=== PATIENT | male | born 1940 | race Caucasian/White ===

== ENCOUNTER 2017-01-06 10:40 | Inpatient (IN) | payer OTHER ==
[2017-01-09] MEDS ORDERED: BISACODYL 10 MG SUPP PR PRN (10:52)
[2017-01-09] MEDS ORDERED: MAG HYDROX/AL HYDROX/SIMETH 30 ML UDCUP PO PRN (10:52)
[2017-01-09] MEDS ORDERED: MAGNESIUM HYDROXIDE 30 ML UDCUP PO PRN (10:52)
[2017-01-09] MEDS ORDERED: POLYETHYLENE GLYCOL 3350 17 GM PKT PO PRN (10:52)
[2017-01-09] MEDS ORDERED: NON-FORMULARY NEW DRUG (Ezetimibe/Simvastatin [Vytorin 10-20 Mg Tablet] 1 EACH) PO SCH (11:00)
--- NOTE | 2017-01-09 11:55 | PDGENHP ---
History and Physical - Chief Complaint stroke - History of Present Illness Date of admission: 01/09/2017 Referring physician: Atilio Hernandez MD Time of evaluation: 1000 Referring facility: [facility] diagnosis: stroke Impairment group: 01.3 Etiologic diagnosis: bilateral embolic cerebral infarct Date of onset: 12/30/2016 76 year old right handed man and [place] resident with h/o untreated alcoholism and no regular medical care who was brought in by EMS to [facility] after fall with right sided weakness found to have acute scattered bilateral strokes (left post. capsule, parietal, occipitotemporal lobes and right thalamus) felt to be embolic in nature but no source was found. Tele was NSR for duration of stay, carotid US (Noted "limited exam with mild bilateral IC atherosclerosis with <50% narrowing, though notes proximal cervical external carotid 50-69% stenosis"), Cardiac Echo with mod concentric LVH and LVEF 45-49% but no notable thrombus. Was initially placed on heprin gtt to bridge to therapuetic AC but recurrent falls in hospital, EtOHism, and discussions with family/neurology, it was felt that bleeding risk was to high and was placed on plavix instead. Of note also found to have CKD. He had mild-moderate EtOH withdrawl during his hospitalization treated with Ativan and Librium. Currently reports primarily "hard to control mood" but denies hallucinations or autonomic manifestations. Also tobacco abuse and notes reaction to patches at OSH (erythema noted over patch site) willing to try gum. Incidentally notes to have right maxillary mass on CT/MRI (4.7x 3.3cm). 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 Socially lives with a daughter in [place] but family in [place] highly fascilatory of his EtOHism and was even found bringing in Rum for him to drink in the hospital. He agreed to come live with daughter and son in law in [place]. Currently denies pain and only notes some right sided weakness and slurred speech. Highly tearful during interview. History Information - Allergies/Home Medication List Allergies/Adverse Reactions: No Known Allergies Allergy (Unverified 01/09/17 10:50) Home Medications: Clopidogrel Bisulfate [Plavix (*)] 75 mg PO DAILY 01/09/17 [Last Taken Unknown] Ezetimibe/Simvastatin [Vytorin 10-20 mg Tablet] 1 each PO DAILY 01/09/17 [Last Taken Unknown] amLODIPine BESYLATE [Norvasc 10 mg (*)] 10 mg PO DAILY 01/09/17 [Last Taken Unknown] chlordiazePOXIDE [Librium 5 mg (*)] 5 mg PO BID 01/09/17 [Last Taken Unknown] I have personally reviewed and updated: family history, medical history, social history, surgical history Past Medical History: EtOHism, no regular medical care - Surgical History Reports: no pertinent surgical hx - Family History Additional family history: unknown to pt - Social History Smoking Status: Heavy smoker Tobacco Use: Cigarettes Alcohol Use: Heavy Drug Use: None Additional social history: per hpi. Was independent in all functional task premorbidly. Current PT/OT/SLT notes no dysphagia but min-modA for most tasks. Review of Systems ROS: 10pt was reviewed & negative except for what was stated in HPI & below Constitutional: Denies: chills, fever EENMT: Reports: nose congestion Cardiac: Denies: chest pain Respiratory: Denies: cough Gastrointestinal: Denies: vomitting Genitourinary: Denies: burning, dysuria Muscolosketal: Denies: joint pain Skin: Reports: no symptoms Neurological: Reports: anxiety, depressed, emotional problems, weakness Hematologic/Lymphatic: Reports: no symptoms Immunologic/Allergy: Reports: no symptoms Physical Exam Temp Pulse Resp BP Pulse Ox 36.6 C 57 L 18 169/84 H 97 01/09/17 11:03 01/09/17 11:03 01/09/17 11:03 01/09/17 11:03 01/09/17 11:03 O2 (L/minute) 0 Constitutional: no apparent distress Eyes: No icteric sclera, No pale conjunctiva Ears, Nose, Mouth, Throat: moist mucous membranes, hearing normal, poor dentition Cardiovascular: regular rate and rhythym, No JVD, No carotid bruit Respiratory: no respiratory distress, clear to auscultation Gastrointestinal: normoactive bowel sounds, soft, non-tender abdomen Skin: warm, no rashes or abrasions Musculoskeletal: other (4/5 RUE and RLE weakness) Neurologic: AAOx3, sensation intact bilaterally (except demoinished left LE proprioception), CN II-XII Intact (except trace dysrthria), other (reflexes 1+ and mostly symmetric without primitive reflexes or spasticity, no dymetria, reasonably good standing balance), No pronator drift, No asterixes Psychiatric: anxious, depressed, flat affect, poor insight, poor judgement Lab Data & Imaging Review Relevant labs (01/03) WBC 6.9, Hgb 16.3, Plt 246 NA 138 K 4.0 Cl 105 C02 24 BUN 25 Cr 01.6 Glu 94 Assessment & Plan Assessment: 76 year old right handed man and [place] resident with h/o untreated alcoholism and no regular medical care who was brought in by EMS to [facility] after fall with right sided weakness found to have acute scattered bilateral embolic strokes and maxillary mass. All of which has resulted in significant functional decline. Currently is requiring assistance for most ADLs and mobility. He is appropriate for rehabilitation with therapy needs for physical, speech, and occupational therapy regarding mobility, dysarthria, cognitive decline and activities of daily living. Her goal is to be independent enough to return home and live with intermittent assistance. He will need close medical management and nursing care regarding his comorbidities including EtOHism, risk for falls, risk for aspiration, initiation of complicated novel medical regiment, and medical education. He will receive therapy including Physical, speech, and occupational therapy for 30-60 minutes each day 5-7 days a week, with a total of 15 hours per week or more, her expected duration of stay is 14 to 18 days. Is expected that once he is ready for discharge he will continue to benefit from a comprehensive home based rehab program once he returns home. Plan: * Bilateral embolic strokes with right hemiplegia, cognitive decline, dysarthria , and left LE decreased proprioception: Continue physical, speech and occupational therapy to optimize functional status and mobility. * Acute embolic left post. capsule, parietal, occipitotemporal lobes and right thalamus infarcts: cont. prophy with vytorin, plavix (pt high fall risk). No clear source of emboli will need Neuro f/u. 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 * Bowel/bladder: no retention and no documented BM at OSH will manage per RN * Mood/Behavior disturbances: very poor insight and compliance at OSH with multiple falls despite increased surveillance. Will keep on alarms and room near RN station. Consider more dedicated pharmacologic treatment of likely latent mood disorder outside of the setting of substance abuse. * Prophylaxis-> DVT, on plavix per prior risk/benefit discussion at OSH with pt. and family. GI, not indicated FULL CODE, this was discussed with pt and family on admit and info packet given to ensure documentation of wishes and help understanding of code process F/U: Will need to establish care with novel PCP, Neurology and ENT locally. Consider alcohol abuse and/or tobacco cessation program though currently patient refusing cessation. BAROS 16 days. Plan to d/c to daughter and soninlaws home. They currently live in a rented apartment but are actively looking for accessible home near [place]. 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
[2017-01-09] MEDS ORDERED: BETAMETHASONE AUGMENTED 0.05% 15GM CREAM TP PRN (12:23)
[2017-01-09] MEDS: FLUoxetine 20 MG CAP PO SCH (13:42)
[2017-01-09] MEDS: CLOPIDOGREL BISULFATE 75 MG TAB PO SCH (13:42)
[2017-01-09] MEDS: SENNOSIDES/DOCUSATE SODIUM TAB PO SCH ×2 (13:42→20:22)
[2017-01-09] MEDS: ACETAMINOPHEN 325 MG TAB PO PRN (13:43)
[2017-01-09] MEDS: NICOTINE POLACRILEX 2 MG GUM B PRN (13:43)
[2017-01-10] MEDS: CLOPIDOGREL BISULFATE 75 MG TAB PO SCH (08:26)
[2017-01-10] MEDS: ATORVASTATIN CALCIUM 10 MG TAB PO SCH (08:26)
[2017-01-10] MEDS: EZETIMIBE 10 MG TAB PO SCH (08:26)
[2017-01-10] MEDS: SENNOSIDES/DOCUSATE SODIUM TAB PO SCH ×2 (08:27→22:20)
[2017-01-10] MEDS: FLUoxetine 20 MG CAP PO SCH (08:27)
[2017-01-10 08:53] LABS: ANION GAP 11 mEq/L (8-16); CALCIUM 9.1 mg/dL (8.5-10.4); CARBON DIOXIDE 23 mEq/l (22-31); CHLORIDE 107 mEq/L (97-110); CREATININE 1.7 mg/dL (0.7-1.3); GLOMERULAR FILTRATION RATE 39; GLUCOSE 102 mg/dL (70-100); POTASSIUM 4.9 mEq/L (3.5-5.2); SODIUM 141 mEq/L (134-144)
--- NOTE | 2017-01-10 10:34 | PDOREHIP ---
Admission IRF-[facility] - Admission - 3 Day Assessment Period Admission Date/Day 1: 01/09/17 Day 2: 01/10/17 Day 3: 01/11/17 - Active Diagnoses Comorbidities and Co-existing Conditions at Admission: 00395. None of the Above - Skin Conditions Unhealed Pressure Ulcer (1 or more/Stage 1 or >)-Admission: 0. No
--- NOTE | 2017-01-10 13:30 | SOAPPROG ---
SOAP Progress Note Assessment/Plan: Assessment: 76 year old right handed man and [place] resident with h/o untreated alcoholism and no regular medical care with acute scattered bilateral embolic strokes and maxillary mass. All of which has resulted in significant functional decline. Currently is requiring assistance for most ADLs and mobility. /, no signs or symptoms of alcohol withdrawal, there was concern at the OSH that he was consuming alcohol in the hospital. No evidence of intoxication on interview or exam today. Cr elevated on labs (1.7), pt reports hx of chronic renal disease (prior Cr unknown at this point). Pt also refusing IV hydration, encouraged PO fluids for now and monitoring of Cr. Plan: * Bilateral embolic strokes with right hemiplegia, cognitive decline, dysarthria , and left LE decreased proprioception: Continue physical, speech and occupational therapy to optimize functional status and mobility. * Acute embolic left post. capsule, parietal, occipitotemporal lobes and right thalamus infarcts: cont. prophy with vytorin, plavix (pt high fall risk). No clear source of emboli will need Neuro f/u. Started Prozac 20mg daily for motor recovery * HTN: cont Norvasc 10mg daily * Renal disease hx? Continue to monitor Cr, pt refusing IVF. Encouraged PO fluids until urine clear. * EtOH abuse/withdrawl: No further CIWA, librium 5mg prn (was scheduled at OSH) to ween as able for neurorecovery and decrease fall risk. Monitor for clinical evidence of alcohol use in hospital which might impair rehab progress, and watch for signs of withdrawal given his possible unreported alcohol use in hospital. 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 * Bowel/bladder: no retention and no documented BM at OSH will manage per RN * Mood/Behavior disturbances: very poor insight and compliance at OSH with multiple falls despite increased surveillance. Will keep on alarms and room near RN station. Consider more dedicated pharmacologic treatment of likely latent mood disorder outside of the setting of substance abuse. * Prophylaxis-> DVT, on plavix per prior risk/benefit discussion at OSH with pt. and family. GI, not indicated FULL CODE, this was discussed with pt and family on admit (Dr. Andujar) and info packet given to ensure documentation of wishes and help understanding of code process F/U: Will need to establish care with novel PCP, Neurology and ENT locally. Consider alcohol abuse and/or tobacco cessation program though currently patient refusing cessation. ELOS 16 days. Plan to d/c to daughter and son-in-laws home. They currently live in a rented apartment but are actively looking for accessible home near [place]. 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 01/10/17 13:24 Subjective: CC: neurological stability, alcohol withdrawal monitoring No acute events overnight. Pt working well with therapies, denies problem with alcohol. Reports hx of renal impairment, not clear on the history or what his baseline Cr might be. refusing IVF despite discussion of risks and benefits. No new numbness, tingling or weakness. Sleeping well, no pain or other new concerns. Denies nausea, tremor, sweating, anxiety, agitation, tactile auditory or visual disturbances, headache, or disorientation. A&Ox3. Objective: Vital Signs Temp Pulse Resp BP Pulse Ox 36.3 C 54 L 16 167/76 H 96 01/10/17 05:45 01/10/17 10:35 01/10/17 05:45 01/10/17 10:35 01/10/17 05:45 Laboratory Results 01/10/17 06:00 01/09/17 01/10/17 01/11/17 05:59 05:59 05:59 Intake Total 1230 480 Output Total 200 Balance 1030 480 Physical Exam - Physical Exam General Appearance: alert, no apparent distress EENT: No scleral icterus (R), No scleral icterus (L) Respiratory: lungs clear, normal breath sounds, No respiratory distress Cardiac/Chest: normal peripheral pulses, regular rate, rhythm Abdomen: non-tender, soft Skin: normal color, No jaundice Lymphatic: no adenopathy Neuro/Psych: alert, other (impaired right hand coordination) ICD10 Worksheet Patient Problems: Problems Problem Status Onset Stroke Acute - ICD10 Problem Qualifiers (1) Stroke Qualifiers: CVA mechanism: embolism Precerebral and cerebral artery: unspecified cerebral artery Laterality of affected vessel: L Qualified Code(s): I63.40 - Cerebral infarction due to embolism of unspecified cerebral artery
[2017-01-11] MEDS: EZETIMIBE 10 MG TAB PO SCH (07:54)
[2017-01-11] MEDS: SENNOSIDES/DOCUSATE SODIUM TAB PO SCH ×2 (07:54→21:13)
[2017-01-11] MEDS: CLOPIDOGREL BISULFATE 75 MG TAB PO SCH (07:54)
[2017-01-11] MEDS: FLUoxetine 20 MG CAP PO SCH (07:54)
[2017-01-11] MEDS: ATORVASTATIN CALCIUM 10 MG TAB PO SCH (07:54)
[2017-01-11 08:39] LABS: ANION GAP 9 mEq/L (8-16); CALCIUM 9.7 mg/dL (8.5-10.4); CARBON DIOXIDE 25 mEq/l (22-31); CHLORIDE 107 mEq/L (97-110); CREATININE 1.6 mg/dL (0.7-1.3); GLOMERULAR FILTRATION RATE 42; GLUCOSE 83 mg/dL (70-100); POTASSIUM 5.1 mEq/L (3.5-5.2); SODIUM 141 mEq/L (134-144)
--- NOTE | 2017-01-11 16:39 | SOAPPROG ---
SOAP Progress Note Assessment/Plan: Assessment: 76 year old right handed man and [place] resident with h/o untreated alcoholism and no regular medical care who suffered CVA 12/30/16 with acute scattered bilateral embolic strokes and maxillary mass. All of which has resulted in significant functional decline. Brought to [place] by daughter. Currently is requiring assistance for most ADLs and mobility. Plan: * Bilateral embolic strokes with right hemiplegia, cognitive decline, dysarthria , and left LE decreased proprioception: Continue physical, speech and occupational therapy to optimize functional status and mobility. * Acute embolic left post. capsule, parietal, occipitotemporal lobes and right thalamus infarcts: cont. prophy with atorvastatin/ezetimibe, clopidogrel (pt high fall risk). No clear source of emboli will need Neuro f/u. Started fluoxetine 20mg daily for motor recovery. * HTN: cont amlodipine 10mg daily. * Chronic renal insufficiency stage III: Continue to monitor Cr, pt refusing IVF. Encouraged PO fluids until urine clear. * EtOH abuse/withdrawal: No further CIWA, not needing chlordiazepoxide (was scheduled at OSH) to wean as able for neurorecovery and decrease fall risk. Monitor for clinical evidence of alcohol use in hospital which might impair rehab progress, and watch for signs of withdrawal given his possible unreported alcohol use in hospital. 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 * Bowel/bladder: no retention and no documented BM at OSH will manage per RN * Mood/Behavior disturbances: very poor insight and compliance at OSH with multiple falls despite increased surveillance. Will keep on alarms and room near RN station. Consider more dedicated pharmacologic treatment of likely latent mood disorder outside of the setting of substance abuse. * Prophylaxis-> DVT, on plavix per prior risk/benefit discussion at OSH with pt. and family. GI, not indicated FULL CODE, this was discussed with pt and family on admit (Dr. Andujar) and info packet given to ensure documentation of wishes and help understanding of code process F/U: Will need to establish care with novel PCP, Neurology and ENT locally. Consider alcohol abuse and/or tobacco cessation program though currently patient refusing cessation. ELOS 16 days. Plan to d/c to daughter and son-in-laws home. They currently live in a rented apartment but are actively looking for accessible home near [place]. All residents of home are employed and would be unavailable for assist during daytime hours. 01/11/17 16:59 Subjective: C/O pain R eye from the mass in his sinus. No diplopia, not interfering with sleep. No cough/dyspnea, f/c, n/v/d/c. Objective: Vital Signs Temp Pulse Resp BP Pulse Ox 36.3 C 69 18 131/76 H 95 01/11/17 06:26 01/11/17 06:26 01/11/17 06:26 01/11/17 07:53 01/11/17 06:26 Laboratory Results 01/11/17 06:35 01/10/17 01/11/17 01/12/17 05:59 05:59 05:59 Intake Total 1230 1580 710 Output Total 200 1000 200 Balance 1030 580 510 Physical Exam - Physical Exam General Appearance: WD/WN, alert, no apparent distress Respiratory: normal breath sounds, No crackles, No rhonchi, No wheezing Cardiac/Chest: regular rate, rhythm, No diastolic murmur, No systolic murmur Skin: normal color, warm/dry Neuro/Psych: alert, normal mood/affect, oriented x 3, motor weakness (R hand ataxic) ICD10 Worksheet Patient Problems: Problems Problem Status Onset Stroke Acute
[2017-01-11] MEDS: ACETAMINOPHEN 325 MG TAB PO PRN (22:41)
[2017-01-12] MEDS: ATORVASTATIN CALCIUM 10 MG TAB PO SCH (07:51)
[2017-01-12] MEDS: CLOPIDOGREL BISULFATE 75 MG TAB PO SCH (07:51)
[2017-01-12] MEDS: FLUoxetine 20 MG CAP PO SCH (07:52)
[2017-01-12] MEDS: SENNOSIDES/DOCUSATE SODIUM TAB PO SCH ×2 (07:52→22:02)
[2017-01-12] MEDS: EZETIMIBE 10 MG TAB PO SCH (07:52)
--- NOTE | 2017-01-12 09:04 | SOAPPROG ---
SOAP Progress Note Assessment/Plan: Assessment: 76 year old right handed man and [place] resident with h/o untreated alcoholism and no regular medical care who suffered CVA 12/30/16 with acute scattered bilateral embolic strokes. Incidental finding of maxillary mass. All of which has resulted in significant functional decline. Brought to [place] by daughter. Currently is requiring assistance for most ADLs and mobility. Plan: * Bilateral embolic strokes with right hemiplegia, cognitive decline, dysarthria , and left LE decreased proprioception: Initial FIM 77. Impulsive with reduced safety awareness and needing supervision at all times. Walked > 150' with occ need for min A due to dragging R foot, pati when turning. Supervision & set-up for ADLs, CGA for balance, poor balance when fatigued. Continue physical, speech and occupational therapy to optimize functional status and mobility. * Cognitive impairment. SLUMS . 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 * Acute embolic left post. capsule, parietal, occipitotemporal lobes and right thalamus infarcts: cont. prophy with atorvastatin/ezetimibe, clopidogrel (pt high fall risk). No clear source of emboli will need Neuro f/u. Started fluoxetine 20mg daily for motor recovery. * HTN: cont amlodipine 10mg daily. Add lisinopril 5 mg QD as BP often elevated. * Chronic renal insufficiency stage III: Continue to monitor Cr, pt refusing IVF. Encouraged PO fluids until urine clear. Adding lisinopril as he has elevated BP and proteinuria. * EtOH abuse/withdrawal: No further CIWA, not needing chlordiazepoxide (was scheduled at OSH) to wean as able for neurorecovery and decrease fall risk. Monitor for clinical evidence of alcohol use in hospital which might impair rehab progress, and watch for signs of withdrawal given his possible unreported alcohol use in hospital. 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 * Bowel/bladder: no retention and no documented BM at OSH will manage per RN * Mood/Behavior disturbances: very poor insight and compliance at OSH with multiple falls despite increased surveillance. Will keep on alarms and room near RN station. Consider more dedicated pharmacologic treatment of likely latent mood disorder outside of the setting of substance abuse. * Prophylaxis-> DVT, on plavix per prior risk/benefit discussion at OSH with pt. and family. GI, not indicated FULL CODE, this was discussed with pt and family on admit (Dr. Andujar) and info packet given to ensure documentation of wishes and help understanding of code process F/U: Will need to establish care with novel PCP, Neurology and ENT locally. Consider alcohol abuse and/or tobacco cessation program though currently patient refusing cessation. Attended staffing, 15 min. D/W case mgmt, nursing, PT, OT, HYDRAULIC TECHNICIAN. Reassess one week re progress towards lower [facility] of care. If no progress, conssider SNF discharge. If progressing, anticipated discharge date 01/17 - 01/21/15. Plans to d/c to daughter and son-in-laws home. They currently live in a rented apartment but are actively looking for accessible home near [place]. All residents of home are employed and would be unavailable for assist during daytime hours. 01/12/17 11:44 Subjective: C/O pain R face. Hurts to yawn. Slept well. No f/c, cough, dyspnea. Reports handwriting is much sloppier. Objective: Vital Signs Temp Pulse Resp BP Pulse Ox 36.4 C 67 17 150/83 H 95 01/12/17 06:11 01/12/17 06:11 01/12/17 06:11 01/12/17 07:51 01/12/17 06:11 Laboratory Results 01/11/17 06:35 01/11/17 01/12/17 01/13/17 05:59 05:59 05:59 Intake Total 1580 1050 Output Total 1000 800 Balance 580 250 - Time Spent With Patient Time Spent With Patient: Greater than 35 minutes floor time today, including more than 50% of time in coordination of care during staffing meeting, and counseling patient. Physical Exam - Physical Exam General Appearance: WD/WN, alert, no apparent distress Respiratory: normal breath sounds, No crackles, No rhonchi, No wheezing Cardiac/Chest: regular rate, rhythm, No edema Skin: normal color, warm/dry Neuro/Psych: alert, normal mood/affect, oriented x 3 ICD10 Worksheet Patient Problems: Problems Problem Status Onset Stroke Acute
[2017-01-12] MEDS: LISINOPRIL 5 MG TAB PO SCH (09:31)
[2017-01-12 09:48] LABS: ANION GAP 10 mEq/L (8-16); CALCIUM 9.6 mg/dL (8.5-10.4); CARBON DIOXIDE 19 mEq/l (22-31); CHLORIDE 108 mEq/L (97-110); CREATININE 1.6 mg/dL (0.7-1.3); GLOMERULAR FILTRATION RATE 42; GLUCOSE 82 mg/dL (70-100); SODIUM 137 mEq/L (134-144)
[2017-01-12] MEDS: ACETAMINOPHEN 325 MG TAB PO PRN ×2 (12:18→19:39)
[2017-01-13] MEDS: LISINOPRIL 5 MG TAB PO SCH (08:50)
[2017-01-13] MEDS: EZETIMIBE 10 MG TAB PO SCH (08:50)
[2017-01-13] MEDS: CLOPIDOGREL BISULFATE 75 MG TAB PO SCH (08:50)
[2017-01-13] MEDS: ATORVASTATIN CALCIUM 10 MG TAB PO SCH (08:50)
[2017-01-13] MEDS: FLUoxetine 20 MG CAP PO SCH (08:50)
[2017-01-13] MEDS: SENNOSIDES/DOCUSATE SODIUM TAB PO SCH ×2 (08:51→21:36)
--- NOTE | 2017-01-13 13:33 | SOAPPROG ---
SOAP Progress Note Assessment/Plan: Assessment: 76 year old right handed man and [place] resident with h/o untreated alcoholism and no regular medical care who suffered CVA 12/30/16 with acute scattered bilateral embolic strokes. Incidental finding of maxillary mass. All of which has resulted in significant functional decline. Brought to [place] by daughter. Currently is requiring assistance for most ADLs and mobility. Plan: * Bilateral embolic strokes with right hemiplegia, cognitive decline, dysarthria , and left LE decreased proprioception: Initial FIM 77. Impulsive with reduced safety awareness and needing supervision at all times. Walked > 150' with occ need for min A due to dragging R foot, pati when turning. Supervision & set-up for ADLs, CGA for balance, poor balance when fatigued. Continue physical, speech and occupational therapy to optimize functional status and mobility. * Cognitive impairment. SLUMS . 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 * Acute embolic left post. capsule, parietal, occipitotemporal lobes and right thalamus infarcts: cont. prophy with atorvastatin/ezetimibe, clopidogrel (pt high fall risk). No clear source of emboli will need Neuro f/u. Started fluoxetine 20mg daily for motor recovery. * HTN: cont amlodipine 10mg daily. Add lisinopril 5 mg QD as BP often elevated. * Chronic renal insufficiency stage III: Continue to monitor Cr, pt refusing IVF. Encouraged PO fluids until urine clear. Adding lisinopril as he has elevated BP and proteinuria. * EtOH abuse/withdrawal: No further CIWA, not needing chlordiazepoxide (was scheduled at OSH) to wean as able for neurorecovery and decrease fall risk. Denied his request for whiskey with meals due to concerns re fall risk and mental status. 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 * Bowel/bladder: no retention and no documented BM at OSH will manage per RN * Mood/Behavior disturbances: very poor insight and compliance at OSH with multiple falls despite increased surveillance. Will keep on alarms and room near RN station. Consider more dedicated pharmacologic treatment of likely latent mood disorder outside of the setting of substance abuse. * Prophylaxis-> DVT, on plavix per prior risk/benefit discussion at OSH with pt. and family. GI, not indicated FULL CODE, this was discussed with pt and family on admit (Dr. Andujar) and info packet given to ensure documentation of wishes and help understanding of code process F/U: Will need to establish care with novel PCP, Neurology and ENT locally. Consider alcohol abuse and/or tobacco cessation program though currently patient refusing cessation. Reassess 01/19/17 re progress towards lower lever of care. If no progress, consider SNF discharge. If progressing, anticipated discharge date 01/17 - . Plans to d/c to daughter and son-in-laws home. They currently live in a rented apartment but are actively looking for accessible home near [place]. All residents of home are employed and would be unavailable for assist during daytime hours. 01/13/17 13:34 Subjective: Per nurse, did not want to go to lunch today unless he had whiskey. Denies feeling hungry. Not in pain, No f/c, cough/dyspnea. Slept well. Objective: Vital Signs Temp Pulse Resp BP Pulse Ox 36.6 C 74 18 141/83 H 98 01/13/17 06:25 01/13/17 06:25 01/13/17 06:25 01/13/17 08:50 01/13/17 06:25 Laboratory Results 01/12/17 06:00 01/12/17 01/13/17 01/14/17 05:59 05:59 05:59 Intake Total 1050 572 Output Total 800 550 Balance 250 22 Physical Exam - Physical Exam General Appearance: WD/WN, alert, no apparent distress Respiratory: No respiratory distress, No accessory muscle use Skin: normal color, warm/dry Neuro/Psych: alert, normal mood/affect, abnormal gait (Ambulating with PT using FWW, slow, short steps, slightly wide-based. Foot drop on R; drags R foot on step-through) ICD10 Worksheet Patient Problems: Problems Problem Status Onset Stroke Acute
[2017-01-13] MEDS: ACETAMINOPHEN 325 MG TAB PO PRN (19:28)
[2017-01-14] MEDS: ACETAMINOPHEN 325 MG TAB PO PRN ×2 (07:44→20:08)
[2017-01-14] MEDS: CLOPIDOGREL BISULFATE 75 MG TAB PO SCH (09:16)
[2017-01-14] MEDS: EZETIMIBE 10 MG TAB PO SCH (09:16)
[2017-01-14] MEDS: FLUoxetine 20 MG CAP PO SCH (09:16)
[2017-01-14] MEDS: ATORVASTATIN CALCIUM 10 MG TAB PO SCH (09:16)
[2017-01-14] MEDS: SENNOSIDES/DOCUSATE SODIUM TAB PO SCH ×2 (09:17→20:08)
[2017-01-14] MEDS: LISINOPRIL 5 MG TAB PO SCH (09:17)
[2017-01-14] MEDS ORDERED: GABAPENTIN 300 MG CAP PO ONE (10:24)
--- NOTE | 2017-01-14 11:13 | SOAPPROG ---
SOAP Progress Note Assessment/Plan: Assessment: 76 year old right handed man and [place] resident with h/o untreated alcoholism and no regular medical care who suffered CVA 12/30/16 with acute scattered bilateral embolic strokes. Incidental finding of maxillary mass. All of which has resulted in significant functional decline. Brought to [place] by daughter. Currently is requiring assistance for most ADLs and mobility. 01/14/2017: Checking PVR for pt reports of periodic incontinence (improving, however). Continued jaw pain, trial of gabapentin at 300 mg BID, can increase after Tuesday. Cr stable at 1.6 from most recent labs. ENT follow up plan is pending. Plan: * Bilateral embolic strokes with right hemiplegia, cognitive decline, dysarthria , and left LE decreased proprioception: Initial FIM 77. Impulsive with reduced safety awareness and needing supervision at all times. Walked > 150' with occ need for min A due to dragging R foot, pati when turning. Supervision & set-up for ADLs, CGA for balance, poor balance when fatigued. Continue physical, speech and occupational therapy to optimize functional status and mobility. * Cognitive impairment. SLUMS . Continue DIPPER FISH. * Acute embolic left post. capsule, parietal, occipitotemporal lobes and right thalamus infarcts: cont. prophy with atorvastatin/ezetimibe, clopidogrel (pt high fall risk). No clear source of emboli will need Neuro f/u. Started fluoxetine 20mg daily for motor recovery, also working for mood and emotional lability. * HTN: cont amlodipine 10mg daily. Add lisinopril 5 mg QD as BP often elevated. * Chronic renal insufficiency stage III: Continue to monitor Cr (seems stable at 1.6 from recent labs), pt refusing IVF. Encouraged PO fluids until urine clear. Adding lisinopril as he has elevated BP and proteinuria. * EtOH abuse/withdrawal: No further CIWA, not needing chlordiazepoxide (was scheduled at OSH) to wean as able for neurorecovery and decrease fall risk. Denied his request for whiskey with meals due to concerns re fall risk and mental status. He is denying alcohol cravings or consuming alcohol in the hospital. * Tobacco dependence: allergic reaction to patches at OSH, will start on gum prn. Low cravings. 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 Physicians and Catherine Capellan working on follow up eval plan. Pain control with PRNs and trial gabapentin 300 mg BID to increase as needed. * Bowel/bladder: no retention and no documented BM at OSH will manage per RN. Some reported incontinence, improving. Will get PVRs and check UA. * Mood/Behavior disturbances: very poor insight and compliance at OSH with multiple falls despite increased surveillance. Will keep on alarms and room near RN station. Consider more dedicated pharmacologic treatment of likely latent mood disorder outside of the setting of substance abuse. Prozac has been very helpful (subjectively and objectively), plan to continue indefinitely beyond treatment course for motor recovery. * Prophylaxis-> DVT, on plavix per prior risk/benefit discussion at OSH with pt. and family. GI, not indicated FULL CODE, this was discussed with pt and family on admit (Dr. Andujar) and info packet given to ensure documentation of wishes and help understanding of code process F/U: Will need to establish care with novel PCP, Neurology and ENT locally. Consider alcohol abuse and/or tobacco cessation program though currently patient refusing cessation. Reassess 01/19/17 re progress towards lower lever of care. If no progress, consider SNF discharge. If progressing, anticipated discharge date 01/17 - . Plans to d/c to daughter and son-in-laws home. They currently live in a rented apartment but are actively looking for accessible home near [place]. All residents of home are employed and would be unavailable for assist during daytime hours. 01/14/17 11:08 01/14/17 11:18 Subjective: CC: urinary incontinence, mood, and pain No acute events overnight. Reports improving incontinence of urine, no PVRs in record. Prozac has been really helpful per his report, no alcohol cravings, and his mood is good. No emotional lability reported. Has continued pain in his right face, worse when lying on it or yawning. Same for past 2 weeks. Medication not particularly helpful, aching, no other symptoms such as swelling or redness. ENT follow up pending. No other new symptoms such as numbness, tingling or weakness. Objective: Vital Signs Temp Pulse Resp BP Pulse Ox 36.6 C 75 17 129/66 H 94 04/14/17 07:14 01/14/17 07:14 01/14/17 07:14 01/14/17 09:17 01/14/17 07:14 Laboratory Results 01/12/17 06:00 01/13/17 01/14/17 01/15/17 05:59 05:59 05:59 Intake Total 572 470 Output Total 550 650 Balance 22 -180 Physical Exam - Physical Exam General Appearance: alert, no apparent distress EENT: other (no right sided redness or swelling), No scleral icterus (R), No scleral icterus (L) Neck: normal inspection Respiratory: No respiratory distress, No accessory muscle use Cardiac/Chest: normal peripheral pulses, regular rate, rhythm Skin: normal color, warm/dry Extremities: non-tender, No pedal edema, No swelling Neuro/Psych: alert, normal mood/affect ICD10 Worksheet Patient Problems: Problems Problem Status Onset Stroke Acute Urinary incontinence Acute - ICD10 Problem Qualifiers (1) Stroke Qualifiers: CVA mechanism: embolism Precerebral and cerebral artery: unspecified cerebral artery Laterality of affected vessel: L Qualified Code(s): I63.40 - Cerebral infarction due to embolism of unspecified cerebral artery (2) Urinary incontinence Qualifiers: Urinary Incontinence type: unspecified incontinence Qualified Code(s): R32 - Unspecified urinary incontinence
[2017-01-14 19:49] LABS: COLOR YELLOW; LEUKOCYTE ESTERASE,URINE NEGATIVE (NEGATIVE); NITRITE,URINE NEGATIVE (NEGATIVE)
[2017-01-14 19:53] LABS: MUCUS TRACE /lpf (NONE-1+)
[2017-01-14] MEDS ORDERED: traMADol 50 MG TAB PO PRN (20:26)
[2017-01-15] MEDS: SENNOSIDES/DOCUSATE SODIUM TAB PO SCH ×2 (10:12→22:08)
[2017-01-15] MEDS: CLOPIDOGREL BISULFATE 75 MG TAB PO SCH (10:12)
[2017-01-15] MEDS: ATORVASTATIN CALCIUM 10 MG TAB PO SCH (10:12)
[2017-01-15] MEDS: LISINOPRIL 5 MG TAB PO SCH (10:12)
[2017-01-15] MEDS: EZETIMIBE 10 MG TAB PO SCH (10:12)
[2017-01-15] MEDS: FLUoxetine 20 MG CAP PO SCH (10:12)
[2017-01-15] MEDS: GABAPENTIN 300 MG CAP PO SCH ×2 (10:15→22:09)
--- NOTE | 2017-01-15 13:08 | SOAPPROG ---
SOAP Progress Note Assessment/Plan: Assessment: n: * Bilateral embolic strokes with right hemiplegia, cognitive decline, dysarthria , and left LE decreased proprioception: Initial FIM 77. Impulsive with reduced safety awareness and needing supervision at all times. Walked > 150' with occ need for min A due to dragging R foot, pati when turning. Supervision & set-up for ADLs, CGA for balance, poor balance when fatigued. Continue physical, speech and occupational therapy to optimize functional status and mobility. * R/O UTI. U/A NOT CONSISTANT WITH UTI BUT SPILLING PROTEIN. * Cognitive impairment. SLUMS . 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 * Acute embolic left post. capsule, parietal, occipitotemporal lobes and right thalamus infarcts: cont. prophy with atorvastatin/ezetimibe, clopidogrel (pt high fall risk). No clear source of emboli will need Neuro f/u. Started fluoxetine 20mg daily for motor recovery, also working for mood and emotional lability. * HTN: cont amlodipine 10mg daily. Add lisinopril 5 mg QD as BP often elevated. * Chronic renal insufficiency stage III: Continue to monitor Cr (seems stable at 1.6 from recent labs), pt refusing IVF. Encouraged PO fluids until urine clear. Adding lisinopril as he has elevated BP and proteinuria. * EtOH abuse/withdrawal: No further CIWA, not needing chlordiazepoxide (was scheduled at OSH) to wean as able for neurorecovery and decrease fall risk. Denied his request for whiskey with meals due to concerns re fall risk and mental status. He is denying alcohol cravings or consuming alcohol in the hospital. * Tobacco dependence: allergic reaction to patches at OSH, will start on gum prn. Low cravings. 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 Physicians and Catherine Capellan working on follow up eval plan. Pain control with PRNs and trial gabapentin 300 mg BID to increase as needed. PATIENT REFUSING GABAPENTIN THIS AM AND SINCE THIS IS ONLY THE SECOND DOSE, RECOMMEND D/CING IT. WOULD BE CAUTIOUS WITH GABAPENTIN GIVEN HIS SERUM CR IS 1.6 AND WOULD D/C IF CrCl is less than 60. * Bowel/bladder: no retention and no documented BM at OSH will manage per RN. Some reported incontinence, improving. Will get PVRs and check UA. * Mood/Behavior disturbances: very poor insight and compliance at OSH with multiple falls despite increased surveillance. Will keep on alarms and room near RN station. Consider more dedicated pharmacologic treatment of likely latent mood disorder outside of the setting of substance abuse. Prozac has been very helpful (subjectively and objectively), plan to continue indefinitely beyond treatment course for motor recovery. * Prophylaxis-> DVT, on plavix per prior risk/benefit discussion at OSH with pt. and family. GI, not indicated Plan: 01/15/17 13:09 Subjective: He reports feeling a little groggy after first dose of gabapentin. He also reports right facial pain. He denies jaw pain this am Objective: Vital Signs Temp Pulse Resp BP Pulse Ox 37.0 C 64 17 139/81 H 91 L 01/15/17 06:42 01/15/17 06:42 01/15/17 06:42 01/15/17 10:12 01/15/17 06:42 Laboratory Results 01/12/17 06:00 01/14/17 01/15/17 01/16/17 05:59 05:59 05:59 Intake Total 470 1240 Output Total 650 650 Balance -180 590 Physical Exam - Physical Exam General Appearance: WD/WN, alert, mild distress (facial pain) EENT: PERRL/EOMI, other (tender over right sinuses) Respiratory: lungs clear, normal breath sounds Cardiac/Chest: No edema, No JVD Abdomen: normal bowel sounds, non-tender, soft, other (no suprapubic tenderness) Skin: normal color, warm/dry Extremities: No swelling, No Garrett's sign Neuro/Psych: normal mood/affect, oriented x 3 ICD10 Worksheet Patient Problems: Problems Problem Status Onset Stroke Acute Urinary incontinence Acute
[2017-01-15] MEDS: traMADol 50 MG TAB PO PRN (17:40)
[2017-01-16] MEDS: ATORVASTATIN CALCIUM 10 MG TAB PO SCH (09:56)
[2017-01-16] MEDS: CLOPIDOGREL BISULFATE 75 MG TAB PO SCH (09:58)
[2017-01-16] MEDS: FLUoxetine 20 MG CAP PO SCH (09:58)
[2017-01-16] MEDS: EZETIMIBE 10 MG TAB PO SCH (09:58)
[2017-01-16] MEDS: SENNOSIDES/DOCUSATE SODIUM TAB PO SCH ×2 (09:59→21:16)
[2017-01-16] MEDS: LISINOPRIL 5 MG TAB PO SCH (09:59)
[2017-01-16] MEDS: GABAPENTIN 300 MG CAP PO SCH ×2 (09:59→21:13)
--- NOTE | 2017-01-16 11:44 | SOAPPROG ---
SOAP Progress Note Assessment/Plan: Assessment: n: * Bilateral embolic strokes with right hemiplegia, cognitive decline, dysarthria , and left LE decreased proprioception: Initial FIM 77. Impulsive with reduced safety awareness and needing supervision at all times. Walked > 150' with occ need for min A due to dragging R foot, pati when turning. Supervision & set-up for ADLs, CGA for balance, poor balance when fatigued. Continue physical, speech and occupational therapy to optimize functional status and mobility. * R/O UTI. U/A NOT CONSISTANT WITH UTI BUT SPILLING PROTEIN. * Cognitive impairment. SLUMS . 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 * Acute embolic left post. capsule, parietal, occipitotemporal lobes and right thalamus infarcts: cont. prophy with atorvastatin/ezetimibe, clopidogrel (pt high fall risk). No clear source of emboli will need Neuro f/u. Started fluoxetine 20mg daily for motor recovery, also working for mood and emotional lability. * HTN: cont amlodipine 10mg daily. Add lisinopril 5 mg QD as BP often elevated. * Chronic renal insufficiency stage III: Continue to monitor Cr (seems stable at 1.6 from recent labs), pt refusing IVF. Encouraged PO fluids until urine clear. Adding lisinopril as he has elevated BP and proteinuria. * EtOH abuse/withdrawal: No further CIWA, not needing chlordiazepoxide (was scheduled at OSH) to wean as able for neurorecovery and decrease fall risk. Denied his request for whiskey with meals due to concerns re fall risk and mental status. He is denying alcohol cravings or consuming alcohol in the hospital. * Tobacco dependence: allergic reaction to patches at OSH, will start on gum prn. Low cravings. 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 Physicians and Catherine Capellan working on follow up eval plan. Pain control with PRNs and trial gabapentin 300 mg BID to increase as needed. PATIENT NOW REPORTS THAT HE WILL TAKE GABPENTIN. REVIEW OF DR NOE'S NOTES INDICATES THIS IS FOR JAW PAIN? WOULD BE CAUTIOUS WITH GABAPENTIN GIVEN HIS SERUM CR IS 1.6 AND WOULD D/C IF CrCl is less than 60. * Bowel/bladder: no retention and no documented BM at OSH will manage per RN. Some reported incontinence, improving. Will get PVRs and check UA. * Mood/Behavior disturbances: very poor insight and compliance at OSH with multiple falls despite increased surveillance. Will keep on alarms and room near RN station. Consider more dedicated pharmacologic treatment of likely latent mood disorder outside of the setting of substance abuse. Prozac has been very helpful (subjectively and objectively), plan to continue indefinitely beyond treatment course for motor recovery. * Prophylaxis-> DVT, on plavix per prior risk/benefit discussion at OSH with pt. and family. GI, not indicated Plan: 01/15/17 13:09 01/16/17 11:43 Subjective: He reports continued right facial pain. Denies CHAVRARIA. Objective: Vital Signs Temp Pulse Resp BP Pulse Ox 37.0 C 62 16 151/67 H 95 01/16/17 07:46 01/16/17 07:46 01/16/17 07:46 01/16/17 09:59 01/16/17 07:46 Laboratory Results 01/12/17 06:00 01/15/17 01/16/17 01/17/17 05:59 05:59 05:59 Intake Total 1240 200 Output Total 650 175 Balance 590 25 Physical Exam - Physical Exam General Appearance: WD/WN, alert EENT: No normal ENT inspection (RIGHT FACIAL PAIN INFRAORBITAL AND MAXILLARY SINUSES WITH PALPATION ) Respiratory: lungs clear, normal breath sounds Cardiac/Chest: No edema, No JVD Abdomen: normal bowel sounds, non-tender, soft Skin: normal color, warm/dry Neuro/Psych: alert, oriented x 3 (BLUNT AFFECT) ICD10 Worksheet Patient Problems: Problems Problem Status Onset Stroke Acute Urinary incontinence Acute
[2017-01-17] MEDS: ATORVASTATIN CALCIUM 10 MG TAB PO SCH (10:27)
[2017-01-17] MEDS: CLOPIDOGREL BISULFATE 75 MG TAB PO SCH (10:27)
[2017-01-17] MEDS: GABAPENTIN 300 MG CAP PO SCH ×3 (10:28→20:53)
[2017-01-17] MEDS: FLUoxetine 20 MG CAP PO SCH (10:28)
[2017-01-17] MEDS: LISINOPRIL 5 MG TAB PO SCH (10:28)
[2017-01-17] MEDS: EZETIMIBE 10 MG TAB PO SCH (10:28)
[2017-01-17] MEDS: SENNOSIDES/DOCUSATE SODIUM TAB PO SCH ×2 (10:29→20:28)
--- NOTE | 2017-01-17 14:58 | SOAPPROG ---
SOAP Progress Note Assessment/Plan: Assessment: 76 year old right handed man and [place] resident with h/o untreated alcoholism and no regular medical care who suffered CVA 12/30/16 with acute scattered bilateral embolic strokes. Incidental finding of maxillary mass. All of which has resulted in significant functional decline. Brought to [place] by daughter. Currently is requiring assistance for most ADLs and mobility. Plan: * Bilateral embolic strokes with right hemiplegia, cognitive decline, dysarthria , and left LE decreased proprioception: Initial FIM 77. Impulsive with reduced safety awareness and needing supervision at all times. Walked > 150' with occ need for min A due to dragging R foot, pati when turning. Supervision & set-up for ADLs, CGA for balance, poor balance when fatigued. Continue physical, speech and occupational therapy to optimize functional status and mobility. * Cognitive impairment. SLUMS . Continue FINISHING FRAME RUNNER. * Acute embolic left post. capsule, parietal, occipitotemporal lobes and right thalamus infarcts: cont. prophy with atorvastatin/ezetimibe, clopidogrel (pt high fall risk). No clear source of emboli; will need Neuro f/u. Started fluoxetine 20mg daily for motor recovery. * HTN: cont amlodipine 10mg daily. Add lisinopril 5 mg QD on 01/12/17 as BP often elevated. * Chronic renal insufficiency stage III: Adding lisinopril as he has elevated BP and proteinuria. * EtOH abuse/withdrawal: No further CIWA, not needing chlordiazepoxide (was scheduled at OSH). Denied his request for whiskey with meals due to concerns re fall risk and mental status. 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 * Bowel/bladder: no retention and no documented BM at OSH will manage per RN * Mood/Behavior disturbances: very poor insight and compliance at OSH with multiple falls despite increased surveillance. Will keep on alarms and room near RN station. Consider more dedicated pharmacologic treatment of likely latent mood disorder outside of the setting of substance abuse. * Prophylaxis-> DVT, on plavix per prior risk/benefit discussion at OSH with pt. and family. GI, not indicated FULL CODE, this was discussed with pt and family on admit (Dr. Andujar) and info packet given to ensure documentation of wishes and help understanding of code process F/U: Will need to establish care with novel PCP, Neurology and ENT locally. Consider alcohol abuse and/or tobacco cessation program though currently patient refusing cessation. Reassess 01/19/17 re progress towards lower lever of care. If no progress, consider SNF discharge. If progressing, anticipated discharge date 01/17 - . Plans to d/c to daughter and son-in-laws home. They currently live in a rented apartment but are actively looking for accessible home near [place]. All residents of home are employed and would be unavailable for assist during daytime hours. 01/17/17 14:55 Subjective: No complaints. Missed PT this afternoon because he was outside smoking with his daughter. Wants to walk on his own. Objective: Vital Signs Temp Pulse Resp BP Pulse Ox 36.3 C 65 16 139/80 H 92 01/17/17 08:00 01/17/17 08:00 01/17/17 08:00 01/17/17 10:28 01/17/17 08:00 Laboratory Results 01/12/17 06:00 01/16/17 01/17/17 01/18/17 05:59 05:59 05:59 Intake Total 200 550 Output Total 175 400 100 Balance 25 -400 450 Physical Exam - Physical Exam General Appearance: WD/WN, alert, no apparent distress, other (unkempt) Respiratory: normal breath sounds, No crackles, No rhonchi, No wheezing Cardiac/Chest: regular rate, rhythm, No edema Skin: normal color, warm/dry Neuro/Psych: alert, normal mood/affect, abnormal gait (Ambulatin with FWW, CGA per PT. Drags R foot on the ground in step-through. Short steps, slow gait.) ICD10 Worksheet Patient Problems: Problems Problem Status Onset Stroke Acute Urinary incontinence Acute
[2017-01-17] MEDS: ACETAMINOPHEN 325 MG TAB PO PRN (20:29)
[2017-01-18 08:30] LABS: ANION GAP 11 mEq/L (8-16); CALCIUM 9.8 mg/dL (8.5-10.4); CARBON DIOXIDE 23 mEq/l (22-31); CHLORIDE 105 mEq/L (97-110); CREATININE 1.8 mg/dL (0.7-1.3); GLOMERULAR FILTRATION RATE 37; GLUCOSE 89 mg/dL (70-100); POTASSIUM 4.9 mEq/L (3.5-5.2); SODIUM 139 mEq/L (134-144)
[2017-01-18] MEDS: SENNOSIDES/DOCUSATE SODIUM TAB PO SCH ×2 (09:07→20:43)
[2017-01-18] MEDS: CLOPIDOGREL BISULFATE 75 MG TAB PO SCH (09:07)
[2017-01-18] MEDS: ATORVASTATIN CALCIUM 10 MG TAB PO SCH (09:07)
[2017-01-18] MEDS: EZETIMIBE 10 MG TAB PO SCH (09:07)
[2017-01-18] MEDS: FLUoxetine 20 MG CAP PO SCH (09:07)
[2017-01-18] MEDS: LISINOPRIL 5 MG TAB PO SCH (09:10)
[2017-01-18] MEDS: GABAPENTIN 300 MG CAP PO SCH (09:10)
--- NOTE | 2017-01-18 13:44 | SOAPPROG ---
SOAP Progress Note Assessment/Plan: Assessment/Plan: 76 year old right handed man and [place] resident with h/o untreated alcoholism and no regular medical care who suffered CVA 12/30/16 with acute scattered bilateral embolic strokes. Incidental finding of maxillary mass. All of which has resulted in significant functional decline. Brought to [place] by daughter. Currently is requiring assistance for most ADLs and mobility. 01/18/2017- doing well overall, stopping gabapentin due to "fogginess" (though it helped with the pain, not interested in a lower dose right now). ENT to see inpatient tomorrow, greatly appreciate assistance. Plan: * Bilateral embolic strokes with right hemiplegia, cognitive decline, dysarthria , and left LE decreased proprioception: Initial FIM 77. Impulsive with reduced safety awareness and needing supervision at all times. Walked > 150' with occ need for min A due to dragging R foot, pati when turning. Supervision & set-up for ADLs, CGA for balance, poor balance when fatigued. Continue physical, speech and occupational therapy to optimize functional status and mobility. * Cognitive impairment. SLUMS . 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 * Acute embolic left post. capsule, parietal, occipitotemporal lobes and right thalamus infarcts: cont. prophy with atorvastatin/ezetimibe, clopidogrel (pt high fall risk). No clear source of emboli; will need Neuro f/u. Started fluoxetine 20mg daily for motor recovery. * HTN: cont amlodipine 10mg daily. Add lisinopril 5 mg QD on 01/12/17 as BP often elevated. * Chronic renal insufficiency stage III: Adding lisinopril as he has elevated BP and proteinuria. * EtOH abuse/withdrawal: No further CIWA, not needing chlordiazepoxide (was scheduled at OSH). Denied his request for whiskey with meals due to concerns re fall risk and mental status. 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 Pain was helped by gabapentin, but stopped due to side effects. He would consider a lower dose in the future. * Bowel/bladder: no retention and no documented BM at OSH will manage per RN * Mood/Behavior disturbances: very poor insight and compliance at OSH with multiple falls despite increased surveillance. Will keep on alarms and room near RN station. Consider more dedicated pharmacologic treatment of likely latent mood disorder outside of the setting of substance abuse. * Prophylaxis-> DVT, on plavix per prior risk/benefit discussion at OSH with pt. and family. GI, not indicated FULL CODE, this was discussed with pt and family on admit (Dr. Andujar) and info packet given to ensure documentation of wishes and help understanding of code process F/U: Will need to establish care with novel PCP, Neurology and ENT locally. Consider alcohol abuse and/or tobacco cessation program though currently patient refusing cessation. Reassess 01/19/17 re progress towards lower lever of care. If no progress, consider SNF discharge. If progressing, anticipated discharge date 01/17 - . Plans to d/c to daughter and son-in-laws home. They currently live in a rented apartment but are actively looking for accessible home near [place]. All residents of home are employed and would be unavailable for assist during daytime hours. 01/14/17 11:08 01/14/17 11:18 01/18/17 13:41 Subjective: CC: jaw pain No acute events overnight. Gabapentin causing foggy thinking, willing to consider again in the future but wants to stop it now. ENT to see him as inpatient tomorrow about mass. Gabapentin helped pain, but he wants a final solution. Objective: Vital Signs Temp Pulse Resp BP Pulse Ox 37.0 C 74 16 136/70 H 94 01/18/17 07:21 01/18/17 07:21 01/18/17 07:21 01/18/17 09:10 01/18/17 07:21 Laboratory Results 01/18/17 06:00 01/17/17 01/18/17 01/19/17 05:59 05:59 05:59 Intake Total 1150 Output Total 400 300 Balance -400 850 Physical Exam - Physical Exam General Appearance: alert, no apparent distress EENT: No scleral icterus (R), No scleral icterus (L) Respiratory: No respiratory distress, No accessory muscle use Cardiac/Chest: regular rate, rhythm, No edema Skin: normal color, warm/dry Extremities: No pedal edema, No swelling Neuro/Psych: alert, normal mood/affect ICD10 Worksheet Patient Problems: Problems Problem Status Onset Stroke Acute Urinary incontinence Acute - ICD10 Problem Qualifiers (1) Stroke Qualifiers: CVA mechanism: embolism Precerebral and cerebral artery: unspecified cerebral artery Laterality of affected vessel: L Qualified Code(s): I63.40 - Cerebral infarction due to embolism of unspecified cerebral artery (2) Urinary incontinence Qualifiers: Urinary Incontinence type: unspecified incontinence Qualified Code(s): R32 - Unspecified urinary incontinence
[2017-01-18] MEDS: ACETAMINOPHEN 325 MG TAB PO PRN (20:42)
[2017-01-19] MEDS: ATORVASTATIN CALCIUM 10 MG TAB PO SCH (09:43)
[2017-01-19] MEDS: EZETIMIBE 10 MG TAB PO SCH (09:43)
[2017-01-19] MEDS: SENNOSIDES/DOCUSATE SODIUM TAB PO SCH ×2 (09:44→20:41)
[2017-01-19] MEDS: FLUoxetine 20 MG CAP PO SCH (09:44)
[2017-01-19] MEDS: LISINOPRIL 5 MG TAB PO SCH (09:44)
[2017-01-19] MEDS: CLOPIDOGREL BISULFATE 75 MG TAB PO SCH (09:44)
--- NOTE | 2017-01-19 17:30 | SOAPPROG ---
SOAP Progress Note Assessment/Plan: Assessment: 76 year old right handed man and [place] resident with h/o untreated alcoholism and no regular medical care who suffered CVA 12/30/16 with acute scattered bilateral embolic strokes. Incidental finding of maxillary mass. All of which has resulted in significant functional decline. Brought to [place] by daughter. Currently is requiring assistance for most ADLs and mobility. Plan: * Bilateral embolic strokes with right hemiplegia, cognitive decline, dysarthria , and left LE decreased proprioception: Initial FIM 77 on 01/12/17; gain to 83 on 01/19/17. Continues impulsive with reduced safety awareness and needing supervision at all times. Walked > 150' with occ need for CGA due to dragging R foot, pati when turning. 6 stairs CGA. Supervision & set-up for ADLs, CGA for balance, poor balance when fatigued. Showering improved; no LOB. Continue physical, speech and occupational therapy to optimize functional status and mobility. * Cognitive impairment. SLUMS . Continue IRRIGATION EQUIPMENT REMOVER. * Acute embolic left post. capsule, parietal, occipitotemporal lobes and right thalamus infarcts: cont. prophy with atorvastatin/ezetimibe, clopidogrel (pt high fall risk). No clear source of emboli; will need Neuro f/u. Started fluoxetine 20mg daily for motor recovery. * HTN: cont amlodipine 10mg daily. Add lisinopril 5 mg QD on 01/12/17 as BP often elevated. * Chronic renal insufficiency stage III: Adding lisinopril as he has elevated BP and proteinuria. Minimal increase increatinine tfrom 1.6 to 1.8 with lisinopril. * EtOH abuse/withdrawal: No further CIWA, not needing chlordiazepoxide (was scheduled at OSH). Denied his request for whiskey with meals due to concerns re fall risk and mental status. 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 * Bowel/bladder: no retention and no documented BM at OSH will manage per RN * Mood/Behavior disturbances: very poor insight and compliance at OSH with multiple falls despite increased surveillance. Will keep on alarms and room near RN station. Consider more dedicated pharmacologic treatment of likely latent mood disorder outside of the setting of substance abuse. * Prophylaxis-> DVT, on plavix per prior risk/benefit discussion at OSH with pt. and family. GI, not indicated FULL CODE, this was discussed with pt and family on admit (Dr. Andujar) and info packet given to ensure documentation of wishes and help understanding of code process F/U: Will need to establish care with novel PCP, Neurology and ENT locally. Consider alcohol abuse and/or tobacco cessation program though currently patient refusing cessation. Attended staffing, 15 min. D/W case mgmt, nursing, PT, OT, IRRIGATION EQUIPMENT REMOVER, pharmacist, customer accounts advisor. D/C to daughter and son-in-law's home 01/21/17. They currently live in a rented apartment but are actively looking for accessible home near [place]. He will need 24 hour supervision; daughter plan to hire assistance. Home PT, OT, IRRIGATION EQUIPMENT REMOVER. Mr. Richmond requires a walker for safety. He has a mobility limitation that significantly impairs one or more ADLs in the home. He is able to use the walker safely. His functional mobility deficit cannot be resolved with a cane. 01/19/17 17:31 Subjective: No complaints. Denies f/c, cough, dyspnea, pain. Objective: Vital Signs Temp Pulse Resp BP Pulse Ox 36.6 C 81 17 117/64 95 01/19/17 06:55 01/19/17 06:55 01/19/17 06:55 01/19/17 09:45 01/19/17 06:55 Laboratory Results 01/18/17 06:00 01/18/17 01/19/17 01/20/17 05:59 05:59 05:59 Intake Total 1150 550 600 Output Total 300 200 Balance 850 350 600 - Time Spent With Patient Time Spent With Patient: Greater than 35 minutes floor time today, including more than 50% of time in coordination of care during staffing meeting, and counseling patient. Physical Exam - Physical Exam General Appearance: WD/WN, alert, no apparent distress Respiratory: normal breath sounds, No crackles, No rhonchi, No wheezing Cardiac/Chest: regular rate, rhythm, No diastolic murmur, No systolic murmur Skin: normal color, warm/dry Neuro/Psych: alert, normal mood/affect ICD10 Worksheet Patient Problems: Problems Problem Status Onset Stroke Acute Urinary incontinence Acute
[2017-01-19] MEDS: ACETAMINOPHEN 325 MG TAB PO PRN (18:51)
[2017-01-20] MEDS: ACETAMINOPHEN 325 MG TAB PO PRN ×3 (07:51→19:05)
[2017-01-20] MEDS: CLOPIDOGREL BISULFATE 75 MG TAB PO SCH (07:55)
[2017-01-20] MEDS: EZETIMIBE 10 MG TAB PO SCH (07:57)
[2017-01-20] MEDS: FLUoxetine 20 MG CAP PO SCH (07:57)
[2017-01-20] MEDS: ATORVASTATIN CALCIUM 10 MG TAB PO SCH (07:57)
[2017-01-20] MEDS: LISINOPRIL 5 MG TAB PO SCH (07:57)
[2017-01-20] MEDS: SENNOSIDES/DOCUSATE SODIUM TAB PO SCH ×2 (08:53→20:41)
--- NOTE | 2017-01-20 11:56 | SOAPPROG ---
SOAP Progress Note Assessment/Plan: Assessment/Plan: 76 year old right handed man and [place] resident with h/o untreated alcoholism and no regular medical care who suffered CVA 12/30/16 with acute scattered bilateral embolic strokes. Incidental finding of maxillary mass. All of which has resulted in significant functional decline. Brought to [place] by daughter. Currently is requiring assistance for most ADLs and mobility. 01/20- doing well overall with no concerns. Increasing lisinopril gingerly to 10 mg daily in setting of continued HTN and renal insufficiency. Plan for DC tomorrow, arranging followup and meds. Plan: * Bilateral embolic strokes with right hemiplegia, cognitive decline, dysarthria , and left LE decreased proprioception: Initial FIM 77 on 01/12/17; gain to 83 on 01/19/17. Continues impulsive with reduced safety awareness and needing supervision at all times. Walked > 150' with occ need for CGA due to dragging R foot, pati when turning. 6 stairs CGA. Supervision & set-up for ADLs, CGA for balance, poor balance when fatigued. Showering improved; no LOB. Continue physical, speech and occupational therapy to optimize functional status and mobility. * Cognitive impairment. SLUMS . Continue MANAGER CATH LAB. * Acute embolic left post. capsule, parietal, occipitotemporal lobes and right thalamus infarcts: cont. prophy with atorvastatin/ezetimibe, clopidogrel (pt high fall risk). No clear source of emboli; will need Neuro f/u. Started fluoxetine 20mg daily for motor recovery. * HTN: Ongoing hypertension. cont amlodipine 10mg daily (max dose). Add lisinopril 5 mg QD on 01/12/17 as BP often elevated, increased 01/20 to 10 daily. * Chronic renal insufficiency stage III: Adding lisinopril as he has elevated BP and proteinuria. Minimal increase increatinine tfrom 1.6 to 1.8 with lisinopril. * EtOH abuse/withdrawal: No further CIWA, not needing chlordiazepoxide (was scheduled at OSH). Denied his request for whiskey with meals due to concerns re fall risk and mental status. 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 Will keep on alarms and room near RN station. Consider more dedicated pharmacologic treatment of likely latent mood disorder outside of the setting of substance abuse. * Prophylaxis-> DVT, on plavix per prior risk/benefit discussion at OSH with pt. and family. GI, not indicated FULL CODE, this was discussed with pt and family on admit (Dr. Andujar) and info packet given to ensure documentation of wishes and help understanding of code process F/U: Will need to establish care with novel PCP, Neurology and ENT locally. Consider alcohol abuse and/or tobacco cessation program though currently patient refusing cessation. Attended staffing, 15 min. D/W case mgmt, nursing, PT, OT, MANAGER CATH LAB, pharmacist, code inspector. D/C to daughter and son-in-law's home 01/21/17. They currently live in a rented apartment but are actively looking for accessible home near [place]. He will need 24 hour supervision; daughter plan to hire assistance. Home PT, OT, MANAGER CATH LAB. Mr. Richmond requires a walker for safety. He has a mobility limitation that significantly impairs one or more ADLs in the home. He is able to use the walker safely. His functional mobility deficit cannot be resolved with a cane. 01/14/17 11:08 01/14/17 11:18 01/18/17 13:41 01/20/17 11:51 Subjective: CC: hypertension No acute events. No orthostasis, no headache, dyspnea, chest pain, or vision changes. Happy he is following with ENT. Ready to go home when appropriate, asking appropriate questions about follow up planning. Objective: Vital Signs Temp Pulse Resp BP Pulse Ox 36.6 C 78 16 155/81 H 97 01/20/17 08:00 01/20/17 08:00 01/20/17 08:00 01/20/17 08:00 01/20/17 08:00 Laboratory Results 01/18/17 06:00 01/19/17 01/20/17 01/21/17 05:59 05:59 05:59 Intake Total 550 1200 Output Total 200 150 Balance 350 1050 Physical Exam - Physical Exam General Appearance: alert, no apparent distress EENT: No scleral icterus (R), No scleral icterus (L) Respiratory: lungs clear, normal breath sounds, No respiratory distress Cardiac/Chest: normal peripheral pulses, regular rate, rhythm, No edema Skin: normal color, warm/dry, No pallor Extremities: No pedal edema, No swelling Neuro/Psych: alert, normal mood/affect ICD10 Worksheet Patient Problems: Problems Problem Status Onset Stroke Acute Urinary incontinence Acute - ICD10 Problem Qualifiers (1) Stroke Qualifiers: CVA mechanism: embolism Precerebral and cerebral artery: unspecified cerebral artery Laterality of affected vessel: L Qualified Code(s): I63.40 - Cerebral infarction due to embolism of unspecified cerebral artery (2) Urinary incontinence Qualifiers: Urinary Incontinence type: unspecified incontinence Qualified Code(s): R32 - Unspecified urinary incontinence
[2017-01-21] MEDS: ACETAMINOPHEN 325 MG TAB PO PRN (02:10)
--- NOTE | 2017-01-21 04:04 | GCON ---
[f rep st] CONSULTATION ENT CONSULTATION DATE OF CONSULTATION: 01/20/2017 CHIEF COMPLAINT: Maxillary sinus mass. HISTORY OF PRESENT ILLNESS: Patient was admitted with history of alcoholism and eventually found to have acute right-sided weakness and bilateral strokes. On incidental scanning, he was found to have a destructive right maxillary mass on CT scan. I reviewed both the images and the read from the radiologist of his CT scan dated January 16, 2017. I agree that there appears to be a right maxillary mass that is destructive of local bone invading the anterior maxillary wall into the sulcus and superiorly into the orbit. Posteriorly, it appears to invade into the pterygopalatine fossa. I was called in consultation for this. In discussing this with the patient, he stated he did have some right -sided facial fullness and pain. He was seemingly not a reliable historian. His daughter was present at the time and reiterated that this mass was found incidentally. No prior history. He has been having some recent mild nosebleeds and nasal congestion on that side. ALLERGIES: No known drug allergies. MEDICATIONS: Home medications and inpatient medications were reviewed. PAST SURGICAL HISTORY: No pertinent surgical history. FAMILY HISTORY: Unknown. SOCIAL HISTORY: Heavy smoker and history of heavy alcohol use. REVIEW OF SYSTEMS: CONSTITUTIONAL: Denies fevers, chills, nausea. HEAD AND NECK: Complains of right nasal congestion and mild bleeding. CARDIAC: Denies chest pain. RESPIRATORY: Denies cough and difficulty breathing. NEUROLOGIC: Reports some right-sided weakness. PHYSICAL EXAM: VITAL SIGNS: Blood pressure 140/67, heart rate 68, respiratory rate 17, O2 saturation is 95% on room air, temperature 36.6 degrees centigrade. GENERAL: Alert, interactive, mild confusion and minimal distress. HEAD AND NECK: Normocephalic, atraumatic with generally symmetric facial features. EARS : Bilateral pinnae and canals are nontender, non-erythematous, and bilateral tympanic membranes appear intact with no evidence of effusion. NOSE: External nose is normally formed and symmetric. No palpable step-offs. Anterior rhinoscopy with soft tissue fullness bilaterally. ORAL CAVITY/ORAL PHARYNX: Moderate age-appropriate dentition. No mucosal masses or erythema. NECK: Supple. SKIN: Skin is warm, normal color. NEURO: Inconsistent right-sided V2 paresthesia/anesthesia, cranial nerves 2-12 intact. PROCEDURE: Flexible video nasal endoscopy was performed following verbal informed consent and bilateral Afrin and lidocaine nasal spray. The left nasal cavity was somewhat narrowed by turbinate hypertrophy. Endoscopy revealed no focal mass or lesion. The view of the nasopharynx was limited by patient tolerance of endoscopy. Right nasal endoscopy was limited by a narrow nasal cavity and soft tissue fullness throughout. The septum was deviated somewhat obstructively to the right and apparent turbinate hypertrophy and soft tissue mass limited visualization of normal structures. The middle meatus was identified and appeared somewhat opened, but little else was able to be seen. The patient was unable to tolerate the endoscope passing through to the nasopharynx. Tissue surfaces appeared mucosally lined, and there was no maryjane polypoid or friable material seen throughout. No bleeding. No purulence. ASSESSMENT: A 76-year-old male with an incidentally found regionally and locally destructive right maxillary mass. 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 At this time, there is no acute intervention that is required, but further diagnostic tests will be needed. Will consider further MRI scanning, but moreover biopsy needs to be performed. Will discuss this with my partner as the extent of the lesion may require multiple surgeons and possible multi-disciplinary treatment. I appreciate the consultation, and if you have any questions, please call me at my cell phone at [phone]. I will plan to follow up with the patient both by telephone and possibly in the clinic. /[id number]/MODL MTDD
[2017-01-21] MEDS: CLOPIDOGREL BISULFATE 75 MG TAB PO SCH (08:54)
[2017-01-21] MEDS: ATORVASTATIN CALCIUM 10 MG TAB PO SCH (08:54)
[2017-01-21] MEDS: FLUoxetine 20 MG CAP PO SCH (08:54)
[2017-01-21] MEDS: EZETIMIBE 10 MG TAB PO SCH (08:54)
[2017-01-21] MEDS: SENNOSIDES/DOCUSATE SODIUM TAB PO SCH (08:55)
[2017-01-21] MEDS: traMADol 50 MG TAB PO PRN (08:55)
[2017-01-21] MEDS: NICOTINE POLACRILEX 2 MG GUM B PRN (08:55)
[2017-01-21 08:56] VITALS: BP 137/70
[2017-01-21] MEDS ORDERED: LISINOPRIL 10 MG TAB PO SCH (09:00)
[2017-01-21 09:11] VITALS: PULSE 64; RESP 18; TEMP 98.6; O2SAT 98
== END 2017-01-21 10:50 | disposition home health service (06) | DRG 57 ==
LOC: BREH 01-09 09:44
PROVIDERS: ADMIT Internal Medicine; ATTEND Internal Medicine
PROC: F0636ZZ Communicative/Cognitive Integration Skills Treatment of Neurological System - Whole Body (ICD-10-PCS; principal; 2017-01-09)
PROC: F07M3ZZ Motor Function Treatment of Musculoskeletal System - Whole Body (ICD-10-PCS; principal; 2017-01-09)
PROC: F08Z7ZZ Vocational Activities and Functional Community or Work Reintegration Skills Treatment (ICD-10-PCS; principal; 2017-01-09)
PROC: 09JK4ZZ Inspection of Nasal Mucosa and Soft Tissue, Percutaneous Endoscopic Approach (ICD-10-PCS; 2017-01-20)
DX: I69.351 Hemiplegia and hemiparesis following cerebral infarction affecting right dominant side (principal); F10.239 Alcohol dependence with withdrawal, unspecified; I69.322 Dysarthria following cerebral infarction; I12.9 Hypertensive chronic kidney disease with stage 1 through stage 4 chronic kidney disease, or unspecified chronic kidney disease; N18.3 Chronic kidney disease, stage 3 (moderate); D48.0 Neoplasm of uncertain behavior of bone and articular cartilage; R21 Rash and other nonspecific skin eruption; F17.200 Nicotine dependence, unspecified, uncomplicated
CPT/HCPCS: 92507-GN; 92508-GN; 92522-GN; 92610-GN; 97110-GO; 97110-GP; 97112-GO; 97112-GP; 97116-GP; 97161-GP; 97166-GO; 97530-GO; 97530-GP; 97532-GO; 97535-GO; 97542-GP

== ENCOUNTER 2017-01-16 13:40 | Emergency (ER) | payer OTHER ==
--- NOTE | 2017-01-16 13:52 | EDPHY ---
HPI/HX/ROS/PE/MDM Narrative: CHIEF COMPLAINT: Stroke Alert HPI: The patient is a 77 y/o male arriving emergently via EMS as a Stroke Alert from rehab facility due to worsening mentation and right-sided weakness over the last 2 hours, though a specific onset is not known. Per EMS he had bilateral CVAs about 1 week ago while in [place] that caused right-sided deficits and he was subsequently admitted to rehab facility in [place] on . Review of these records confirmed bilateral embolic CVAs and noted that patient has a history of alcoholism that continues to be facilitated by his family while in rehab. EMS reports the facility noticed "significant decrease in mentation" and right-sided facial droop that seemed new from his previous deficits. The patient denies new weakness, chest pain, or shortness of breath. He is not currently on anticoagulants. EMS BGL was 147. REVIEW OF SYSTEMS: Aside from elements discussed in the HPI, a comprehensive 10-point review of systems was reviewed and is negative. PMH: Alcoholism; acute bilateral scattered emboli strokes - January 2017 Prior medical records reviewed including rehab admission 01/09/17. SOCIAL HISTORY: Alcohol abuse. Family facilitatory with his alcohol abuse, brought him alcohol while at rehab. PHYSICAL EXAM: General:Patient is alert, in no acute distress. ENT:Eyes are normal to inspection. ENT inspection normal. Neck: Normal inspection. Full range of motion. Respiratory:No respiratory distress. Breath sounds normal bilaterally. Cardiovascular: Regular rate and rhythm. Strong peripheral pulses. Normal cap refill. Abdomen:The abdomen is nontender to palpation. There are no peritoneal signs. Back: Normal to inspection. No tenderness to palpation. Skin: Normal color. No rash. Warm and dry. Extremities: Normal appearance. Full range of motion. Neuro: Oriented x3. Mild right pronator drift. No facial droop. ED Course: 1340: Met EMS upon arrival and took report. Dr. Sanders, teleneurologist, also met patient upon arrival via robot. This is a 76 y/o male with a history of alcoholism and recent bilateral CVAs who presents from rehab with reported worsening right-sided deficits and altered mentation. Upon initial exam, patient denies new complaints, but does have right arm weakness. Due to his history, he is not a TPA candidate due to his recent CVAs. 1342: Patient sent directly to CT. Labs drawn including CBC, troponin, EtOH serum. EKG ordered. Head CT without IV contrast shows no sign of acute stroke. I viewed the images myself on the PACS system. The 12 lead EKG was interpreted by myself. See hard copy and/or "tracemaster" electronic copy for interpretation. 1430: Consulted with Dr. Ha, [facility] rehab. He is willing to accept patient back to their facility, but needs to check with his staff before he can confirm with us. He will call me back. 1550: Spoke with Dr. Ha again. He confirms they will accept patient back at their facility. MDM: This patient presents report of new onset right-sided facial droop and decreased mental status. On my initial exam, the patient shows no sign of facial droop. Although he arrives as a stroke alert, this was quickly canceled as, given his recent diagnosis of stroke, the patient is not a candidate for tPA. I reviewed the patient's previous documentation and it appears that his neuro deficits today are similar to what was described on his admission history and physical. I spoke extensively to the rehab doctor on-call and he feels comfortable taking the patient back as opposed to admitting the patient to the hospital for observation tonight. - Data Points Imaging Results: Imaging Impressions Head CT 01/16/17 13:42 Impression: 1. No definite evidence of acute infarct or hemorrhagic transformation of evolving subacute infarcts. 2. 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 3. Fluid opacification of the right mastoid air cells with extension to the middle ear, similar to the comparisons, suggesting a sequela of mastoiditis. 4. Additional findings, as above. Findings discussed with Dash Lima MD on January 16, 2017 at 1352 hours. Laboratory Results: Laboratory Results 01/16/17 13:45 01/16/17 13:45 01/16/17 01/16/17 01/16/17 13:45 13:45 13:45 WBC 9.96 10^3/uL H 10^3/uL (3.80-9.50) RBC 4.83 10^6/uL 10^6/uL (4.40-6.38) Hgb 15.9 g/dL g/dL (13.7-17.5) POC Hgb Hct 47.7 % % (40.0-51.0) POC Hct MCV 98.8 fL fL (81.5-99.8) MCH 32.9 pg pg (27.9-34.1) MCHC 33.3 g/dL g/dL (32.4-36.7) RDW 12.4 % % (11.5-15.2) Plt Count 422 10^3/uL H 10^3/uL (150-400) MPV 9.5 fL fL (8.7-11.7) Neut % (Auto) 77.3 % H % (39.3-74.2) Lymph % (Auto) 11.9 % L % (15.0-45.0) [place] % (Auto) 6.9 % % (4.5-13.0) Eos % (Auto) 2.8 % % (0.6-7.6) Baso % (Auto) 0.7 % % (0.3-1.7) Nucleat RBC Rel Count 0.0 % % (0.0-0.2) Absolute Neuts (auto) 7.69 10^3/uL H 10^3/uL (1.70-6.50) Absolute Lymphs (auto) 1.19 10^3/uL 10^3/uL (1.00-3.00) Absolute Monos (auto) 0.69 10^3/uL 10^3/uL (0.30-0.80) Absolute Eos (auto) 0.28 10^3/uL 10^3/uL (0.03-0.40) Absolute Basos (auto) 0.07 10^3/uL 10^3/uL (0.02-0.10) Absolute Nucleated RBC 0.00 10^3/uL 10^3/uL (0-0.01) Immature Gran % 0.4 % % (0.0-1.1) Immature Gran # 0.04 10^3/uL 10^3/uL (0.00-0.10) PT 13.9 SEC SEC (12.0-15.0) INR 1.08 (0.83-1.16) APTT 32.7 SEC SEC (23.0-38.0) POC Sodium Sodium 137 mEq/L mEq/L (134-144) POC Potassium Potassium 4.9 mEq/L mEq/L (3.5-5.2) POC Chloride Chloride 100 mEq/L mEq/L (97-110) Carbon Dioxide 25 mEq/l mEq/l (22-31) Anion Gap 12 mEq/L mEq/L (8-16) POC BUN BUN 27 mg/dL H mg/dL (7-23) Creatinine 1.9 mg/dL H mg/dL (0.7-1.3) POC Creatinine Estimated GFR 35 Glucose 131 mg/dL H mg/dL (70-100) POC Glucose Calcium 10.4 mg/dL mg/dL (8.5-10.4) Troponin I 0.018 ng/mL ng/mL (0-0.034) Ethyl Alcohol < 10 mg/dL mg/dL (0-10) 01/16/17 13:40 WBC RBC Hgb POC Hgb 16.7 gm/dL gm/dL (14.5-17.3) Hct POC Hct 49 % % (42.8-50.6) MCV MCH MCHC RDW Plt Count MPV Neut % (Auto) Lymph % (Auto) [place] % (Auto) Eos % (Auto) Baso % (Auto) Nucleat RBC Rel Count Absolute Neuts (auto) Absolute Lymphs (auto) Absolute Monos (auto) Absolute Eos (auto) Absolute Basos (auto) Absolute Nucleated RBC Immature Gran % Immature Gran # PT INR APTT POC Sodium 139 mEq/L mEq/L (134-144) Sodium POC Potassium 5.1 mEq/L H mEq/L (3.3-5.0) Potassium POC Chloride 102 mEq/L mEq/L (96-108) Chloride Carbon Dioxide Anion Gap POC BUN 41 mg/dL H mg/dL (7-23) BUN Creatinine POC Creatinine 1.9 mg/dL H mg/dL (0.8-1.5) Estimated GFR Glucose POC Glucose 130 mg/dL H mg/dL (70-100) Calcium Troponin I Ethyl Alcohol Point of Care Test Results: 01/16/17 13:40 POC Sodium 139 POC Potassium 5.1 H POC Chloride 102 POC BUN 41 H POC Creatinine 1.9 H POC Glucose 130 H General Initial Vital Signs: Initial Vital Signs Temperature (C) 36.6 C 01/16/17 13:40 Heart Rate 68 01/16/17 13:40 Respiratory Rate 16 01/16/17 13:40 Blood Pressure 173/78 H 01/16/17 13:40 O2 Sat (%) 91 L 01/16/17 13:40 O2 Delivery Mode Room Air O2 (L/minute) 2 Allergies/Adverse Reactions: No Known Allergies Allergy (Verified 01/16/17 14:09) Home Medications: Medication Instructions Recorded Betamethasone/Propylene Glyc 1 rina TP DAILY PRN 01/09/17 [Betamethasone Dp Aug 0.05% Crm] Clopidogrel Bisulfate [Plavix (*)] 75 mg PO DAILY 01/09/17 Ezetimibe/Simvastatin [Vytorin 1 each PO DAILY 01/09/17 10-20 mg Tablet] amLODIPine BESYLATE [Norvasc 10 mg 10 mg PO DAILY 01/09/17 (*)] chlordiazePOXIDE [Librium 5 mg (*)] 5 mg PO BID 01/09/17 Departure - Departure Disposition: Home, Routine, Self-Care Clinical Impression: Altered mental status Qualifiers: Altered mental status type: unspecified Qualified Code(s): R41.82 - Altered mental status, unspecified Condition: Good Instructions: Altered Mental Status (ED) Additional Instructions: Return directly to rehab facility. Return to the ED for worsening of symptoms. Referrals: Patient,NotPresent [Primary Care Provider] - As per Instructions Allan aH MD [Medical Doctor] - As per Instructions Report Scribed for: Dash Lima Report Scribed by: Rosalva Travis Date of Report: 01/16/17 Time of Report: 13:35 Physician Review and Approval Statement: Portions of this note were transcribed by an ED scribe. I personally performed the history, physical exam, and medical decision making; and confirm the accuracy of the information in the transcribed note.
[2017-01-16 13:53] LABS: % IMMATURE GRANULYOCYTES 0.4 % (0.0-1.1); ABSOLUTE IMMATURE GRANULOCYTES 0.04 10^3/uL (0.00-0.10); ADD DIFF? NO; ADD MORPH? NO; ADD SCAN? NO; ATYPICAL LYMPHOCYTE FLAG 0 (0-99); FRAGMENT RBC FLAG 0 (0-99); HEMATOCRIT 47.7 % (40.0-51.0); HEMOGLOBIN 15.9 g/dL (13.7-17.5); LEFT SHIFT FLG 0 (0-99); LIPEMIA HEMOLYSIS FLAG 80 (0-99); MEAN CELL HEMOGLOBIN 32.9 pg (27.9-34.1); MEAN CELL HEMOGLOBIN CONCENTR. 33.3 g/dL (32.4-36.7); MEAN CELL VOLUME 98.8 fL (81.5-99.8); MEAN PLATELET VOLUME 9.5 fL (8.7-11.7); PLATELET CLUMPS FLAG 10 (0-99); PLATELET COUNT 422 10^3/uL (150-400); RED BLOOD CELL COUNT 4.83 10^6/uL (4.40-6.38); RED CELL DISTRIBUTION WIDTH 12.4 % (11.5-15.2)
--- NOTE | 2017-01-16 14:00 | CPEKG ---
Heart Rate: 68 RR Interval: 882 P-R Interval: 176 QRSD Interval: 96 QT Interval: 424 QTC Interval: 451 P Mallory: 12 QRS Mallory: 18 T Wave Mallory: 158 EKG Severity - ABNORMAL ECG - EKG Impression: SINUS RHYTHM EKG Impression: PROBABLE LVH WITH SECONDARY REPOL ABNRM Electronically Signed By: Dash Lima 16-Jan-2017 20:05:14
[2017-01-16 14:03] LABS: INR 1.08 (0.83-1.16); PROTIME(PATIENT) 13.9 SEC (12.0-15.0)
[2017-01-16 14:04] LABS: APTT 32.7 SEC (23.0-38.0)
[2017-01-16 14:17] LABS: TROPONIN I 0.018 ng/mL (0-0.034)
[2017-01-16 14:24] LABS: ANION GAP 12 mEq/L (8-16); CALCIUM 10.4 mg/dL (8.5-10.4); CARBON DIOXIDE 25 mEq/l (22-31); CHLORIDE 100 mEq/L (97-110); CREATININE 1.9 mg/dL (0.7-1.3); ETHANOL SERUM < 10 mg/dL (0-10); GLOMERULAR FILTRATION RATE 35; GLUCOSE 131 mg/dL (70-100); POTASSIUM 4.9 mEq/L (3.5-5.2); SODIUM 137 mEq/L (134-144)
[2017-01-16 15:52] VITALS: PULSE 67
[2017-01-16 17:51] VITALS: BP 157/74; RESP 14; TEMP 98.1; O2SAT 97
== END 2017-01-16 17:51 | disposition home or self-care (01) ==
LOC: EDUNIT#
DX: R41.82 Altered mental status, unspecified (principal)
CPT/HCPCS: 82947-QW; G0480